=== PATIENT | male | born 1980 | race Caucasian/White ===

== ENCOUNTER 2020-11-12 23:45 | Emergency (ER) | payer OTHER ==
[2020-11-13 02:52] LABS: HEMOGLOBIN 14.9 gm/dl (14.0-17.5); RED BLOOD COUNT 4.52 M/UL (4.20-5.50); WHITE BLOOD COUNT 16.2 K/UL (4.5-11.0)
[2020-11-13 03:42] LABS: BUN/CREATININE RATIO 16 (0-10)
[2020-11-13] MEDS ORDERED: PERCOCET 5/325 T1 EA PO (04:05)
== END 2020-11-13 04:20 | disposition home or self-care (01) ==
LOC: ER1 23:45
PROVIDERS: Physician Assistant
DX: S22.21XA Fracture of manubrium, initial encounter for closed fracture (principal); S42.002A Fracture of unspecified part of left clavicle, initial encounter for closed fracture; Z88.0 Allergy status to penicillin; Z88.1 Allergy status to other antibiotic agents; V86.59XA Driver of other special all-terrain or other off-road motor vehicle injured in nontraffic accident, initial encounter
CPT/HCPCS: 70450; 71260; 72125; 72128; 73030; 73130; 80053; 82550; 82553; 83874; 84484; 85025; 99284; Q9967